=== PATIENT | female | born 1965 | race Caucasian/White ===

== ENCOUNTER 2016-06-23 14:50 | Emergency (ER) | payer SELFPAY ==
[~2016-06-23] VITALS: Ht 167.6 cm; Wt 78.0 kg
[2016-06-23 15:00] VITALS: BP_SYST 147
--- NOTE | 2016-06-23 15:00 | NUR ---
Patient triaged and placed in waiting room. VSS and patient appears in no acute distress at this time. Accompanied by self, awaiting available bed, and MD notified of need for MSE.
--- NOTE | 2016-06-23 15:04 | NUR ---
ER [employer]IT[employer]UL[employer] MAKER Jacklyn evaluated patient in the triage room
--- NOTE | 2016-06-23 15:10 | NUR ---
PT arrived to ED via walk in with chief complaint of cough with pain and SOB x 3 days. PT reports flu like symptoms. Reports fever, body aches, generalized malaise and pain with cough. No signs of obvious respiratory distress at this time. Crackles present bilaterally to lung bases. Denies N/V. Will continue to monitor.
[2016-06-23] MEDS ORDERED: DEXAMETHASONE SOD PHOSPHATE 10 MG/ML VIAL IM ONE (15:15)
[2016-06-23] MEDS ORDERED: IPRATROPIUM/ALBUTEROL SULFATE 3 ML AMPUL.NEB INH ONE (15:15)
[2016-06-23] MEDS ORDERED: KETOROLAC TROMETHAMINE 60 MG/2 ML VIAL IM ONE (15:15)
--- NOTE | 2016-06-23 15:16 | NUR ---
RT at bedside for breathing treatment
[2016-06-23 15:55] VITALS: BP_SYST 147
--- NOTE | 2016-06-23 15:55 | NUR ---
Patient given written and verbal discharge instructions and verbalizes understanding. ER MD discussed with patient the results and treatment provided. Given copies of tests performed in ER. Patient in stable condition. ID arm band removed. Rx of promethazine, motrin, azithromycin, prednisonevgiven. Patient educated on pain management and to follow up with PMD. Pain Scale 2. Opportunity for questions provided and answered.
== END 2016-06-23 15:55 | disposition home or self-care (01) ==
LOC: SED 14:50
DX: J20.9 Acute bronchitis, unspecified (principal); I10 Essential (primary) hypertension
CPT/HCPCS: 94640; 96372; 99284; J1100; J1885